=== PATIENT | male | born 1980 | race Caucasian/White ===

== ENCOUNTER 2021-01-09 14:59 | Outpatient (CLI) | payer BC, SELFPAY ==
--- NOTE | ~2021-01-09 | US_ITS ---
EXAMINATION: US scrotum doppler EXAM DATE: 01/09/2021 15:34 INDICATION: LT testicular pain and swelling. TECHNIQUE: Multiple grayscale and Doppler images of the testicles and scrotum were obtained bilateral ly. There is no prior study for comparison. FINDINGS: Right testicle measures 3.8 x 2.3 x 2.7 cm and is morphologically normal. Low resistance Doppler dragan w confirmed. The epididymis is unremarkable. There is no hydrocele or varicocele. Left testicle measures 3.5 x 2.2 x 2.3 cm and is morphologically normal. Low resistance Doppler flow confirmed. The epididymis is enlarged, heterogeneous and hypervascular compared to the contralateral side, could indicate epididymitis. There is a small varicocele. IMPRESSION: 1. Findings consistent with left-sided epididymitis. Reviewed, dictated and finalized at location A. RPROOFING SUPERVISOR
== END 2021-01-09 15:00 | disposition home or self-care (01) ==
PROVIDERS: PCP Family Medicine
DX: N50.819 Testicular pain, unspecified (principal)
CPT/HCPCS: 76870; 93976

== ENCOUNTER 2024-04-11 09:32 | Outpatient (CLI) | payer BC, SELFPAY ==
--- NOTE | ~2024-04-11 | US_ITS ---
Limited Abdominal Sonogram: Real-time sonographic imaging of the right upper quadrant was performed. Clinical History: Abnormal findings of blood chemistry Findings: The liver appears normal with no evidence of mass lesion or bile duct dilatation. Main por buddy vein demonstrates normal direction of flow. The gallbladder is well distended, and appears normal with no evidence of gallstone or wall thickening. The common bile duct measures 3 mm. The visualize d pancreas, aorta, and IVC are unremarkable. Impression: No significant abnormality seen. Reviewed, dictated and finalized at location M. Impression: No significant abnormality seen.
== END 2024-04-11 09:33 ==
PROVIDERS: PCP Family Medicine; Visit Provider Family Medicine
DX: R79.89 Other specified abnormal findings of blood chemistry (principal)
CPT/HCPCS: 76705

== ENCOUNTER 2025-09-18 09:27 | Outpatient (CLI) | payer BC, SELFPAY ==
--- NOTE | 2025-09-18 09:39 | ECG_ITS ---
Test Date: 2025-09-18 09:45:36 Measurements Intervals [place] Rate: 68 P: 61 LA: 153 QRS: 64 QRSD: 92 T: 31 QT: 368 QTc: 392 Interpretive Statements SINUS RHYTHM DELAYED PRECORDIAL R/S TRANSITION BASELINE ARTIFACT- I, II, III, AVR, AVL,A VF BORDERLINE ECG No previous ECG available for comparison Electronically Signed On 09-18-2025 09:49:14 CDT by Cipriano Walker D.O.
--- OUTSIDE RECORDS SUMMARY | 2025-09-18 10:27 | XMS_ITS | Clinical Summary ---
Author Organization [facility] Address [address] [place] [id number] Care Team Providers Care Veterinarian Epidemiologist Name Role Phone Bhanu Regalado MD Primary Care Provider Allergies No known active allergies Medications atorvastatin (LIPITOR) 40 mg tablet Take 1 tablet (40 mg total) by mouth daily 0 Active meclizine (ANTIVERT) 12.5 mg tabletIndications: Dizziness Take 2 tablets (25 mg total) by mouth 3 (three) times a day as needed for dizziness 30 tablet 3 Active ondansetron ODT (ZOFRAN-ODT) 4 mg disintegrating tabletIndications: Nausea Take 1 tablet (4 mg total) by mouth every 6 (six) hours as needed for nausea or vomiting 20 tablet 3 Active Active Problems Problem Noted Date Diagnosed Date Epididymitis 02/14/2021 Pain in testicle 01/07/2021 Surgical History Surgery Date Site/Laterality Comments OTHER SURGICAL HISTORY 11/22/1993 - 11/21/1994 maxillofacial surgery VASECTOMY Family History Medical History Relation Name Comments Diabetes Father Heart disease Father Hodgkin's lymphoma Mother Rheum arthritis Mother Relation Name Status Comments Father Mother Social History Tobacco Use Types Packs/Day Years Used Date Smoking Tobacco: Never Smokeless Tobacco: Never Alcohol Use Standard Drinks/Week Comments Yes 0 (1 standard drink = 0.6 oz pur e alcohol) Personal Safety Answer Date Recorded Getting School Help Needed Not on file 11/19 Sex and Gender Information Value Date Recorded Sex Assigned at Not on file Legal Sex Male 12:25 PM QUALITY ENG Gender Identity Not on file Sexual Orientation Not on file Obstetrics History Last Filed Vital Signs Vital Sign Reading Time Taken Comments Blood Pressure 120/76 10/08/2023 12:11 PM QUALITY ENG Pulse 84 10/08/2023 12:11 PM QUALITY ENG Temperature 36.9 C (98.4 F) 10/08/2023 12:11 PM QUALITY ENG Respiratory Rate 20 10/08/2023 12:11 PM QUALITY ENG Oxygen Saturation 98% 10/08/2023 12:11 PM QUALITY ENG Inhaled Oxygen Concentration - - Weight 72.1 kg (159 lb) 10/08/2023 12:11 PM QUALITY ENG Height 162.6 cm (5' 4) 10/08/2023 12:11 PM QUALITY ENG Body Mass Index 27.29 10/08/2023 12:11 PM QUALITY ENG Plan of Treatment Health Maintenance Due Date Last Done Comments Colon Cancer Screening-Colonoscopy 1980 Depression Screening 1980 Hepatitis C Screening 1980 Hepatitis B Screening 02/19/1996 Regular Well Visit/Exam 18-64 02/19/1996 DTaP/Tdap/Td Vaccine (2 - Td or Tdap) 05/22/2023 05/22/2013 Influenza Vaccine (#1) 2025 7, 09/13/2016, 09/12/2013 Pneumococcal vaccine <65 Aged Out No longer eligible based on patient's age to complete this topic [place] Care Teams Veterinarian Epidemiologist Relationship Specialty Start Date End Date Bhanu Regalado MD [address] [facility] [address] [place] [address] PCP - General Family Medicine 01/06/21
--- OUTSIDE RECORDS SUMMARY | 2025-09-18 10:27 | XMS_ITS | Clinical Summary ---
Author Organization [facility] Address [address] [place] [address] Care Team Providers Care Supervisor [employer] Name Role Phone Unavailable Primary Care Provider Unavailabl e Allergies No known active allergies Medications qodiq-0-fki-epa -fish oil (OMEGA-3 FISH OIL) 910-1,400 mg Oral Cap Take 1 Cap by mouth daily at bedtime. Active cyanocobalamin 1,000 mcg Oral Tab Take 1,000 mcg by mouth daily. Active atorvastatin (LIPITOR) 40 mg tablet TAKE 1 TABLET BY MOUTH EVERY NIGHT AT BEDTIME 90 Tab 3 4 Active pseudoephedrine (SUDAFED) 30 mg tabletIndicatio ns:Post-nasal drip,Viral URI with cough Take 2 Tabs by mouth every 6 hours as needed for Congestion. 30 Tab 0 5 Active codeine-guaiFEN esin (CHERATUSSIN AC) 10-100 mg/5 mL LiquidIndicatio ns:Post-nasal drip,Viral URI with cough Take 10 mL by mouth every 4 hours as needed for Cough. 180 mL 0 5 Active fluticasone (FLONASE) 50 mcg/spray [place], SuspensionIndic ations:Post-trenton al drip,Viral URI with cough Administer 2 Sprays in each nostril daily. 16 Gram 0 5 Active valACYclovir (VALTREX) 1 gram tablet TAKE ONE TABLET BY MOUTH TWICE DAILY 20 Tablet 0 6 Active Active Problems Patient Care Coordination No te Formatting of this note migh t be different from the original. REsident PCP: Martin baer Problem Noted Date Diagnosed Date Routine general medical exam ination at a health care facility 12/09/2011 B12 deficiency 12/09/2011 Other and unspecified hyperlipidemia 12/07/2011 Immunizations Immunization Administration Dates Next Due (ADACEL/BOOSTRIX)(10 YR UP) TDAP VACCINE, 0.5ML, IM 05/22/2013 Influenza Vaccine Split 3+ Yrs IM 09/12/2013 Family History Medical History Relation Name Comments Hypertension Brother 1 Healthy Father Heart Disease Father [place] Heart Disease Maternal Grandfather [place] Stroke Maternal Grandmother Cancer Mother Hodgkins Healthy Mother Other Mother RA Healthy Paternal Grandfather Healthy Paternal Grandmother Healthy Sister High Cholesterol Sister Relation Name Status Comments Brother 1 Alive Brother 2 Alive Father Alive Maternal Grandfather Maternal Grandmother Mother Alive Paternal Grandfather Alive Paternal Grandmother Alive Sister Alive Social History Tobacco Use Types Packs/Day Years Used Date Smoking Tobacco: Never Smokeless Tobacco: Never Alcohol Use Standard Drinks/Week Comments Not Asked 0 (1 standard drink = 0.6 oz pur e alcohol) Sex and Gender Information Value Date Recorded Sex Assigned at Not on file Legal Sex Male 6:06 AM ENGINEERING DESIGN MANAGER Gender Identity Not on file Sexual Orientation Not on file Occupation Industry Job Start Date Job End Date Not on file Not on file Not on file Not on file Not on file Not on file Not on file Not on file Last Filed Vital Signs Vital Sign Reading Time Taken Comments Blood Pressure 114/70 12/31/2014 11:34 AM ENGINEERING DESIGN MANAGER Pulse 60 12/31/2014 11:34 AM ENGINEERING DESIGN MANAGER Temperature 36.8 C (98.3 F) 12/31/2014 11:34 AM ENGINEERING DESIGN MANAGER Respiratory Rate 24 07/05/2014 10:29 AM CDT Oxygen Saturation - - Inhaled Oxygen Concentration - - Weight 69.4 kg (153 lb) 12/31/2014 11:34 AM ENGINEERING DESIGN MANAGER Height 167.6 cm (5' 6) 12/31/2014 11:34 AM ENGINEERING DESIGN MANAGER Body Mass Index 24.69 12/31/2014 11:34 AM ENGINEERING DESIGN MANAGER Plan of Treatment Health Maintenance Due Date Last Done Comments HEPATITIS B VACCINES (1 of 3 - 19+ 3-dose series) 01/22 COLORECTAL SCREENING 2023 Colorectal Cancer Screening 2023 FIT-DNA Q 3 years 2023 FIT/FOBT Q 1 year 2023 Flex Sig/CT Colonography Q 5 years 2023 DTAP/TDAP/TD VACCINES (2 - Td or Tdap) 05/22/2023 INFLUENZA VACCINE (#1) 2025 09/12/2013 Insurance [facility] BLUE ACCESS/TRUE BLUE PPO
--- OUTSIDE RECORDS SUMMARY | 2025-09-18 10:27 | XMS_ITS | Encounter Summary ---
Author Organization [facility] Address [address] [place] [address] Care Team Providers Care Teacher Citizenship Name Role Phone Yanira Valera MD Primary Care Provider Unavail able Encounter Details Date Type Department Care Team (Late st Contact Info) Description 01/05/2015 Nurse Triage Report [facility] ABSTRACTION Gregory Solo, RN Social History Tobacco Use Types Packs/Day Years Used Date Smoking Tobacco: Never Smokeless Tobacco: Never Alcohol Use Standard Drinks/Week Comments Not Asked 0 (1 standard drink = 0.6 oz pur e alcohol) Sex and Gender Information Value Date Recorded Sex Assigned at Not on file Legal Sex Male 6:06 AM RAIL TRACK LAYER Gender Identity Not on file Sexual Orientation Not on file Occupation Industry Job Start Date Job End Date Not on file Not on file Not on file Not on file Not on file Not on file Not on file Not on file documented as of this encounter Progress Notes * Gregory Solo, RN - 01/05/2015 2:01 PM CST Triage Addendum Addendum Date and Time [id number] Presenting Problem: I have sinus pain. Report feedback to Dr Jacobs ASSESSMENT Assessment Triage Questions: Caller has patient permission to share protected health and personal information for purposes of triage 3-N/A Associated Symptoms: Sinus pressure, headache, facial pain, cheek bone, eye and nose area is sensative to touch, teeth hurt Onset: 5 days Location: head Pain Assessment: 1 - 10 with 10 being the most severe pain 7 Treatment so far for current presenting problem: nasonex, sudafed, cheratussin AC,flonase History (Clinical Problems): Office visit Wednesday with H/A and throat drainage, coughing phlegm, nasal inflamation History (Oncology/Hematology Diagnosis): N/A Treatment for oncology or hematology diagnosis: N/A Date of last oncology or hematology specific treatment: N/A Medications: nasonex, sudafed, cheratussin AC,flonase, fish oil, lipitor, valtrex Medications and start of each - oncology related: N/A Medication reactions: NKDA Does this physician utilize [employer] e-prescribing or treatment protocol? N/A Instructed to keep an updated list of their prescriptions and OTC medications and to take their list with them anytime they are seen by a PCP/UCC/ER and or a specialist 1-Yes, patient med-rec teaching done Call source (Pt is currently receiving oncology/hematology services from): 9. Not an oncology/hematology patient TRIAGE NOTE Triage Note: Respiratory Care Practitioner smrcy\mcindm added this note on Jan 05 2015 2:01PM Dr Andrews called order in to the [facility] for Augmentin 875-125mg 1 pill twice a day by mouth for 10 days. Dewayne was made aware. TRIAGE/OUTCOME Guideline Title: Upper Respiratory Infection (URI) Recommended Disposition: Call Provider within 8 Hours Original Inclination: Call Provider/See in 24 Override Disposition: Intended Action: Call Provider Immediately Physician Contacted: Yes Being treated by a provider for a secondary infection AND no improvement in symptoms, symptoms have worsened OR has new symptoms after following treatment plan for the time specified by provider. ? YES Physician Instructions: Care Advice: Continue to follow treatment plan, including medications, until evaluated by provider. Go to the ED if has new onset of stiff neck, vomiting, drowsiness or confusion. Go to ED IMMEDIATELY if developing increased shortness of breath, continuous cough, worsening fatigue, or unable to perform ADLs. Drink more fluids -- water, low-sugar juices, tea and warm soup, especially chicken broth, are options. Avoid caffeinated or alcoholic beverages because they can increase the chance of dehydration. Medication Advice: - Discontinue all nonprescription and alternative medications, especially stimulants, until evaluated by provider. - Take prescribed medications as directed, following label instructions for the medication. - Do not change medications or dosing regimen until provider is consulted. - Know possible side effects of medication and what to do if they occur. - Tell provider all prescription, nonprescription or alternative medications that you take Respiratory Hygiene: - Cover the nose/mouth tightly with a tissue when coughing or sneezing. - Use tissue 1 time and discard in the nearest waste receptacle. - Wash hands with soap and water or alcohol-based hand rub after coming into contact with respiratory secretions and contaminated objects/materials. - Alternatively when no tissue is available, cough into the bend of the elbow. - Avoid touching your eyes, nose or mouth. See your provider today if you have a temperature 101.5F (38.6C) or higher, increased difficulty breathing, chest pain with cough, or cough with blood-tinged sputum. Total water intake includes drinking water, water in beverages, and water contained in food. Fluids make up about 80% of the body's total hydration need. Individual fluid requirement to maintain hydration vary based on physical activity, environmental factors and illness. Limit fluids that contain sugar, caffeine, or alcohol. Urine will be very light yellow color when you drink enough fluids. TRACK LAYER TRACK LAYER documented in this encounter Plan of Treatment Not on file documented as of this encounter Visit Diagnoses Not on filedocumented in this encounter Care Teams Teacher Citizenship Relationship Specialty Start Date End Date Yanira Valera MD PCP - General Family Practice 07/19/15 02/16/21 documented as of this encounter
--- OUTSIDE RECORDS SUMMARY | 2025-09-18 10:27 | XMS_ITS | Clinical Summary ---
Author Organization [facility] Address [address] [place] [address] Care Team Providers Care Match Maker Name Role Phone Bhanu Regalado MD Primary Care Provider [phone] Source Comments [facility],non-owned Affiliates and Associated Physician Practices is amultiple site organization consisting of ambulatory clinics and hospital sitesin [place], [place] and [place]. This disclosure is being madepursuant to the Care Everywhere program and may not contain all information available regarding this patient. Last updated 18.[facility] Allergies No known active allergies Medications * Be aware that medications may not be up to date on this document. Alwaysverify current medications with the patient. atorvastatin (Lipitor) 40 MG tablet Take 1 (one) tablet by mouth at bedtime Active Social History Tobacco Use Types Packs/Day Years Used Date Smoking Tobacco: Never Smokeless Tobacco: Never Tobacco Cessation:Counseling Given: Not Answered Alcohol Use Standard Drinks/Week Comments Yes 0 (1 standard drink = 0.6 oz pur e alcohol) sometimes Sex and Gender Information Value Date Recorded Sex Assigned at Male 10/03/2023 10:19 AM WATER FILTERER Legal Sex Male 1:16 PM CDT Gender Identity Male 10/03/2023 10:19 AM WATER FILTERER Sexual Orientation Straight 10/03/2023 10 :19 AM WATER FILTERER Last Filed Vital Signs Vital Sign Reading Time Taken Comments Blood Pressure 107/75 10/06/2023 1:49 PM WATER FILTERER Pulse 62 10/06/2023 1:49 PM WATER FILTERER Temperature 36.3 C (97.3 F) 10/06/2023 1:49 PM WATER FILTERER Respiratory Rate 16 10/06/2023 1:49 PM WATER FILTERER Oxygen Saturation 98% 10/06/2023 1:49 PM WATER FILTERER Inhaled Oxygen Concentration - - Weight 70.3 kg (155 lb) 10/06/2023 12:27 PM WATER FILTERER Height 162.6 cm (5' 4) 10/06/2023 12:27 PM WATER FILTERER Body Mass Index 26.61 10/06/2023 12:27 PM WATER FILTERER Plan of Treatment Health Maintenance Due Date Last Done Comments COLOGUARD (AGES 45-75) - COL ON CA SCREENING 1978 CT COLONOGRAPHY - COLON CA SCREENING 1978 FIT - COLON CA SCREENING 1978 FLEX SIG - COLON CA SCREENING 1978 HIV SCREENING 1993 HEPATITIS C SCREENING 02/14/1996 DTAP/TDAP/TD VACCINES (1 - Tdap) 1997 HEPATITIS B VACCINE (1 of 3 - 19+ 3-dose series) 1997 DEPRESSION SCREENING 11/22/2024 COVID-19 VACCINE (1 - 2023-2 5 season) 2025 INFLUENZA VACCINE (#1) 2025 09/12/2013 ZOSTER VACCINE (1 of 2) 02/19/2028 COLON MONITORING 10/06/2033 10/06/2023, 10/06/2023, 10/06/2023 COLONOSCOPY - COLON CA SCREENING 10/06/2033 10/06/2023, 10/06/2023, 10/06/2023 Colorectal Cancer Screening 10/06/2033 HIB VACCINE Aged Out No longer eligi ble based on patient's age to complete this topic HPV VACCINE Aged Out No longer eligi ble based on patient's age to complete this topic MENINGOCOCCAL (Group B) VACCINE SHARED DECISION-MAKING Aged Out No longer eligible based on patient's age to complete this topic MENINGOCOCCAL GROUPS A/C/Y/W VACCINE Aged Out No longer eligible b ased on patient's age to complete this topic PNEUMOCOCCAL VACCINE Aged Out No long er eligible based on patient's age to complete this topic Procedures Procedure Name Priority Date/Time Associated Diagnosis Comments ENDOSCOPY, COLON, SCREENING Routine 10/06/2023 1:24 PM WATER FILTERER Screening for colon cancer from Last 3 Months or Most Recently Relevant to Health Maintenance Results * ENDOSCOPY, COLON, SCREENING (10/06/2023 1:24 PM WATER FILTERER) Report Endoscopy POC _ Patient Name: Dewayne Fu Procedure Date: 10/06/2023 1:24 PM Date of : 1980 Admit Type: Outpatient Age: 43 Gender: Male Ethnicity: Not or Race: White Attending MD: Abimael Ying MD, [id number] _ Procedure: Colonoscopy Indications: Screening for colorectal malignant neoplasm Providers: Abimael Ying MD (Doctor), Dale Coulter RN Patient Profile: 43yo male with average risk for colon cancer here for screening colonoscopy Referring MD: Bhanu Regalado MD (Referring MD) Medicines: Monitored Anesthesia Care Complications: No immediate complications. _ Estimated Blood Loss: Estimated blood loss: none. Procedure: Pre-Anesthesia Assessment: - Prior to the procedure, a History and Physical was performed, and patient medications, allergies and sensitivities were reviewed. The patient's tolerance of previous anesthesia was reviewed. - The risks and benefits of the procedure and the sedation options and risks were discussed with the patient. All questions were answered and informed consent was obtained. - Prior Anticoagulants: The patient has taken no anticoagulant or antiplatelet agents. - Prior Aspirin/ NSAID therapy: The patient has taken no aspirin or NSAID medications. After I obtained informed consent, the scope was passed under direct vision. Throughout the procedure, the patient's blood pressure, pulse, and oxygen saturations were monitored continuously. The Colonoscope was introduced through the anus and advanced to the cecum, identified by appendiceal orifice and ileocecal valve. The colonoscopy was performed without difficulty. The patient tolerated the procedure well. The quality of the bowel preparation was evaluated using the BBPS ([place] Bowel Preparation Scale) with scores of: Right Colon = 2 (minor amount of residual staining, small fragments of stool and/or opaque liquid, but mucosa seen well), Transverse Colon = 2 (minor amount of residual staining, small fragments of stool and/or opaque liquid, but mucosa seen well) and Left Colon = 2 (minor amount of residual staining, small fragments of stool and/or opaque liquid, but mucosa seen well). The total BBPS score equals 6. The quality of the bowel preparation was fair. The ileocecal valve, appendiceal orifice, and rectum were photographed. Impression: - Preparation of the colon was fair. - One 6 mm polyp in the sigmoid colon, removed with a jumbo cold forceps. Resected and retrieved. - The distal rectum and anal verge are normal on retroflexion view. Findings: The perianal and digital rectal examinations were normal. A 6 mm polyp was found in the sigmoid colon. The polyp was sessile. The polyp was removed with a jumbo cold forceps. Resection and retrieval were complete. The retroflexed view of the distal rectum and anal verge was normal and showed no anal or rectal abnormalities. _ Recommendation: - Discharge patient to home. - Patient has a contact number available for emergencies. The signs and symptoms of potential delayed complications were discussed with the patient. Return to normal activities tomorrow. Written discharge instructions were provided to the patient. - Resume previous diet. - Await pathology results. - Repeat colonoscopy in 5-10 years for surveillance depending on path. Procedure Code(s): --- Professional --- 57212, Colonoscopy, flexible; with biopsy, single or multiple --- Technical --- 86756, Colonoscopy, flexible; with biopsy, single or multiple Diagnosis Code(s): --- Professional --- Z12.11, Encounter for screening for malignant neoplasm of colon D12.5, Benign neoplasm of sigmoid colon --- Technical --- Z12.11, Encounter for screening for malignant neoplasm of colon D12.5, Benign neoplasm of sigmoid colon CPT copyright 2020 [employer]. All rights reserved. The codes documented in this report are preliminary and upon cash application clerk review may be revised to meet current compliance requirements. ___ Abimael Ying MD 10/06/2023 1:45:30 PM Number of Addenda: 0 Note Initiated On: 10/06/2023 1:24 PM [facility] 10/06/2023 1:24 PM WATER FILTERER Narrative Procedure Note Abimael Ying MD - 10/06/2023 1:46 PM CST Colonoscopy done for screening. Single sigmoid polyp s/p polypectomy.f/u path. Repeat colonoscopy in 5-10 years depending on path. Abimael Ying MD GI PROCEDURE ORDERABLES Ed ited Result - Final [facility] from Last 3 Months or Most Recently Relevant to Health Maintenance Insurance [employer] Care Teams Match Maker Relationship Specialty Start Date End Date Bhanu Regalado MD [address] [place] [address] PCP - General Family Medicine 09/21/23
== END 2025-09-18 09:28 | disposition home or self-care (01) ==
PROVIDERS: PCP Family Medicine; Visit Provider Otolaryngology
DX: R94.31 Abnormal electrocardiogram [ECG] [EKG] (principal); E78.2 Mixed hyperlipidemia
CPT/HCPCS: 93005